=== PATIENT | female | born 1985 | race Caucasian/White ===

== ENCOUNTER → 2018-12-26 15:53 | Outpatient (CLI) | payer OTHER, SELFPAY ==
--- NOTE | 2018-12-26 | DI.MRI.S_ITS ---
PROCEDURE: MR FOOT RT WO CON INDICATIONS: Lateral right ankle and foot pain TECHNIQUE: Noncontrast sagittal T1 spin echo and T2 fast spin echo with fat saturation, long-axis T1 spin echo and T2 fast spin echo with fat saturation, short-axis T1 spin echo and T2 fast spin echo with fat saturation through the forefoot. COMPARISON: [facility], MR, MR ANKLE RT WO CON, 12/26/2018, 16:11. FINDINGS: Image quality: Excellent. Bones and joints: No bone marrow contusions or metatarsal stress fractures. The sesamoid bones appear in expected positions, without internal edema. No metatarsophalangeal joint degeneration. No intraosseous lesions. Soft tissues: The visualized plantar foot muscles demonstrate normal signal and bulk. Visualized flexor and extensor tendons appear intact, without tenosynovitis. The distal insertions of the peroneus brevis and longus tendons appear intact. The principal Lisfranc ligament appears intact. No soft tissue ganglion cysts or bursal fluid collections. Sagittal images demonstrate no evidence for plantar plate tears. Nonspecific dorsal subcutaneous edema overlying the forefoot at the level of the metatarsal bases. IMPRESSION: Nonspecific dorsal forefoot subcutaneous edema. Dictated by: Tommy Fisher M.D. on 12/27/2018 at 9:10 Approved by: Tommy Fisher M.D. on 12/27/2018 at 9:15
--- NOTE | 2018-12-26 | DI.MRI.S_ITS ---
PROCEDURE: MR ANKLE RT WO CON INDICATIONS: Lateral right ankle pain TECHNIQUE: Noncontrast sagittal T1 spin echo and T2 fast spin echo with fat saturation, axial proton density fast spin echo and T2 fast spin echo with fat saturation, coronal T1 spin echo and T2 fast spin echo with fat saturation through the ankle/hindfoot. COMPARISON: None. FINDINGS: Image quality: Excellent. Bones and joints: No bone marrow contusions or fractures. No hindfoot coalitions. No osteochondral injuries of the talar dome. No pathologic joint effusions. Incidental ganglion cyst synovial cyst seen at the posterior aspect of the tibiotalar posterior recess. Medial structures: The posterior tibialis, flexor digitorum longus, and flexor hallucis longus tendons are intact. Minimal posterior tibialis tenosynovitis. The posterior tibial neurovascular bundle appears normal within the tarsal tunnel, without extrinsic mass effect. The deep layer (anterior and posterior tibiotalar ligaments) and superficial layer (tibionavicular, tibiospring, and tibiocalcaneal ligaments) of the deltoid ligament appear normal. The spring ligament components (superomedial calcaneonavicular, medioplantar oblique calcaneonavicular, and inferoplantar longitudinal ligaments) are intact. Lateral structures: The anterior talofibular, calcaneofibular, and posterior talofibular ligaments appear intact. However, there is predominantly low signal thickening of the anterior talofibular ligament More superiorly, the anterior and posterior tibiofibular ligaments appear intact, as is the intermalleolar ligament. The tibiofibular syndesmosis is normal in width at 2 mm or less. There is severe peroneus longus and brevis tenosynovitis. The peroneus longus tendon appears grossly intact. There is prominent longitudinal split tear of the peroneus brevis tendon extending from the level of the tip of the lateral malleolus to the level of the anterior calcaneus. Associated thickening and internal signal changes. Adjacent bony peroneal tubercle and retrotrochlear prominence are normal in size. The sinus tarsi demonstrates normal fatty signal, without edema, fibrosis, or cyst formation. Visualized sinus tarsi components (cervical ligament, interosseous talocalcaneal ligament, roots of the inferior extensor retinaculum) appear normal. The calcaneonavicular and calcaneocuboid components of the bifurcate ligament appear intact. The dorsal calcaneocuboid ligament appears intact. Anterior structures: The tibialis anterior, extensor hallucis longus, and extensor digitorum longus tendons appear intact. The dorsal talonavicular ligament appears intact. There is mild dorsal subcutaneous edema in the region of the forefoot. Posterior and plantar structures: Achilles tendon is intact. Mild medial band plantar fasciitis at the calcaneal attachment. IMPRESSION: Severe peroneus brevis tendinopathy and longitudinal split tear as above. Associated tenosynovitis. Peroneus longus tenosynovitis. Low-grade sprain of the anterior talofibular ligament although probably chronic given the largely low signal appearance. Minimal posterior tibialis tenosynovitis. Mild medial band plantar fasciitis. Dictated by: Tommy Fisher M.D. on 12/27/2018 at 9:15 Approved by: Tommy Fisher M.D. on 12/27/2018 at 9:22
== END ==
PROVIDERS: Family Provider Family Medicine; PCP Family Medicine; Visit Provider Podiatrist
DX: M25.571 Pain in right ankle and joints of right foot (principal); M79.671 Pain in right foot; R60.0 Localized edema
CPT/HCPCS: 73718; 73721

== ENCOUNTER 2020-10-17 11:36 | Emergency (ER) | payer OTHER, SELFPAY ==
--- NOTE | 2020-10-17 11:50 | ED_ITS ---
HPI - Abdominal Pain General Chief Complaint: Nausea/Vomiting/Diarrhea Stated Complaint: stomach cramping/diarrhea 4 days Time Seen by Provider: 10/17/20 11:41 Source: patient and family Mode of arrival: Ambulatory Limitations: no limitations History of Present Illness HPI narrative: 35-year-old female nonsmoker with history of celiac disease presents with her significant other and a chief complaint of waxing and waning episodes of abdominal cramping since Sunday. She has had episodes of loose stool and now is passing mucus with her stool. There is no obvious provocation, palliation or radiation of her discomfort. She is occasionally nauseated but denies any vomiting. She has had no fever or chills. She has had no blood in her stool. She denies any recent antibiotics, international travel, bad food or exposure to other persons with similar symptoms. She currently is not having any symptoms. She states that just prior to COVID she was diagnosed with celiac but has not followed up and has not seen anybody in takes no specific treatments for this. At the end of questions she remembers that the symptoms started after eating a small amount of bread. MD complaint: abdominal pain Onset (ago): day(s) Pain Consistency: intermittent Location: diffuse Severity: moderate Quality: cramping Radiation: none Migration to: no migration Relieving factors: nothing Exacerbating factors: nothing Associated symptoms: nausea and diarrhea Related Data Previous Rx's Medication Instructions Recorded hyoscyamine sulfate 0.125 mg PO BID-QID PRN #20 tab 10/17/20 Allergies Allergy/AdvReac Type Severity Reaction Status Date / Time gluten Allergy Severe Gastrointestinal Verified 10/17/20 12:11 Upset acetaminophen Allergy Intermediate Gastrointestinal Verified 10/17/20 12:11 Upset Review of Systems Constitutional Constitutional: Denies chills, Denies fatigue, Denies fever(s), Denies frequent falls, Denies lethargy and Denies weakness Eyes Eyes: Denies change in vision, Denies eye discharge, Denies irritation and Denies loss of vision ENT Ears, Nose, Mouth, and Throat: Denies change in voice, Denies dizziness, Denies neck pain, Denies sore throat and Denies throat swelling Cardiovascular Cardiovascular: Denies chest pain, Denies irregular heart rhythm, Denies lightheadedness, Denies palpitations, Denies dyspnea, Denies dyspnea on exertion and Denies orthopnea Respiratory Respiratory: Denies cough, Denies dyspnea, Denies dyspnea on exertion and Denies wheezing Gastrointestinal Gastrointestinal: Reports abdominal pain, Reports change in bowel habits, Reports diarrhea, Reports nausea and Denies vomiting Musculoskeletal Musculoskeletal: Denies neck pain and Denies numbness Integumentary/Breasts Skin/Breast: Denies pruritus, Denies erythema, Denies rash and Denies wounds Neurologic Neurologic: Denies behavioral changes, Denies confusion, Denies dizziness, Denies frequent falls, Denies loss of vision, Denies numbness and Denies weakness Psychiatric Psychiatric: Denies anxiety, Denies behavioral changes, Denies confusion, Denies depression, Denies homicidal ideation and Denies suicidal ideation Endocrine Endocrine: Denies fatigue, Denies flushing and Denies palpitations Hematologic/Lymphatic Hematologic/Lymphatic: Denies easy bruising Allergic/Immunologic Allergic/Immunologic: Denies urticaria, Denies throat swelling and Denies wheezing Patient History Social History Smoking Status: Never smoker Smoking Status: Never smoker alcohol intake frequency: 0-2 drinks per day Substance Use Type: does not use Exam Narrative Exam Narrative: GENERAL: [35] year old patient appears stated age. Well- developed patient, in mild distress. HEAD: Atraumatic. Normocephalic. EYES: Pupils equal round and reactive. Extraocular motions intact. No scleral icterus. No injection or drainage. ENT: Nose without bleeding, purulent drainage. Throat without erythema, tonsillar hypertrophy or exudate. Airway patent. NECK: Trachea midline. Non tender CARDIOVASCULAR: Regular rate and rhythm without murmurs, gallops, or rubs. RESPIRATORY: Clear to auscultation. Breath sounds equal bilaterally. No wheezes, rales, or rhonchi. GASTROINTESTINAL: Abdomen soft, non-tender, nondistended. EXTREMITIES: No edema or joint tenderness. BACK: Nontender without deformity or crepitance. No flank tenderness. NEURO: AOx3. SKIN: No rash or erythema of visible areas Initial Vital Signs Initial Vital Signs: Vital Signs Temperature 98.5 F 10/17/20 11:52 Pulse Rate 92 H 10/17/20 11:52 Respiratory Rate 18 10/17/20 11:52 Blood Pressure 145/90 H 10/17/20 11:52 Pulse Oximetry 99 10/17/20 11:52 Course Orders Ordered: ED Orders 10/17/20 11:49 XR abdomen min 2V Stat 10/17/20 12:10 Complete Blood Count AUTO DIFF Stat 10/17/20 12:17 Comprehensive Metabolic Panel Stat Discontinued Medications Lactated Ringer's (Lactated Ringers) 1,000 mls @ 1,000 mls/hr IV BOLUS ONE Stop: 10/17/20 12:48 Last Admin: 10/17/20 12:11 Dose: 1,000 mls/hr Documented by: JUAN ALBERTO Vital Signs Vital signs: Vital Signs - 8 hr 10/17/20 11:52 Temperature 98.5 F Pulse Rate 92 H Respiratory Rate 18 Blood Pressure 145/90 H Pulse Oximetry 99 MDM - Abdominal Pain Lab Data Result diagrams: 10/17/20 12:10 10/17/20 12:17 Labs: Lab Results 10/17/20 10/17/20 Range/Units 12:10 12:17 WBC 6.5 (4.5-11.0) X10^3/uL RBC 4.87 (4.0-5.2) X10^6/uL Hgb 14.6 (12.0-16.0) g/dL Hct 42.3 (36-46) % MCV 86.7 (80-100) fL MCH 30.0 (26-34) PG MCHC 34.6 (30-36) % RDW 12.9 (11.6-14.8) % Plt Count 154 (150-400) X10^3/uL Neut % (Auto) 57.6 (50-75) % Lymph % (Auto) 30.1 (25-40) % [place] % (Auto) 9.6 (3-14) % Eos % (Auto) 2.0 (2-4) % Baso % (Auto) 0.7 (0-2) % Neut # (Auto) 3800 (3038-1331) /uL Lymph # (Auto) 2000 (1348-7069) /uL [place] # (Auto) 600 (0-900) /uL Eos # (Auto) 100 (0-450) /uL Baso # (Auto) 0 (0-100) /uL Sodium 139 (137-145) mmol/L Potassium 4.0 (3.4-5.1) mmol/L Chloride 105 (98-107) mmol/L Carbon Dioxide 26 (22-32) mmol/L BUN 11 (7-17) mg/dL Creatinine 0.80 (0.52-1.04) mg/dL Estimated GFR > 60.0 (>60) mL/min BUN/Creatinine Ratio 13.8 (6-22) Glucose 94 (70-100) mg/dL Calcium 9.7 (8.4-10.2) mg/dL Total Bilirubin 0.8 (0.2-1.3) mg/dL AST 30 (14-36) IU/L ALT 21 (<35) IU/L Alkaline Phosphatase 62 (38-126) U/L Total Protein 7.9 (6.3-8.2) g/dL Albumin 4.5 (3.5-5.0) g/dL Globulin 3.4 (1.7-4.1) g/dL Albumin/Globulin Ratio 1.3 (1.0-2.8) Imaging Data Abdominal x-ray: Radiologist's Impression: BLAZE CHRISTIAN 35 F [address] [address]YAtn ReportSigned Patient: BLAZE CHRISTIANMR#: [id number]: 1985Acct:[id number]/Sex: 35 / FDate of Service: 10/17/20Loc: EDAccession Number: [id number] Procedure: XR abdomen min 2V Ordering Provider: Carter Irizarry D.O. PROCEDURE: XR ABDOMEN MIN 2V INDICATIONS: crampy abdominal pain, episodes of diarrhea TECHNIQUE: 2 views of the abdomen were acquired. COMPARISON: None. FINDINGS: Surgical changes and devices: Sterilization clips are incidentally noted within the pelvis. Bowel: No pneumoperitoneum. The bowel gas pattern is normal. Soft tissues: No masses; visualized solid organ contours appear normal in size. No suspicious abdominal calcifications. Bones: No suspicious bony abnormalities. IMPRESSION: A nonobstructive bowel gas pattern is seen. If clinically appropriate, please consider a repeat plain film study or a dedicated CT of the abdomen and pelvis, if the patient's symptoms persist or worsen. Dictated by: Hill Hillman M.D. on 10/17/2020 at 11:25 Approved by: Hill Hillman M.D. on 10/17/2020 at 11:25 Discharge Plan Departure Patient Disposition: Home Clinical Impression: Acute vomiting Abdominal pain Qualifiers: Abdominal location: generalized Qualified Code(s): R10.84 - Generalized abdominal pain Instructions: DI for Abdominal Pain-Adult Activity Restrictions/Additional Instructions: *You have been diagnosed with [episodic, crampy abdominal pain with reassuring blood work and x-ray, possibly a reaction to diet (celiac)] *What to do: *Please continue to take your regular medications as directed. [ x] New medication prescriptions printed *Please follow up with your primary care provider in 2-3 days, call for an appointment. Let them know you were seen in the Emergency Department and that we ask that you be seen in follow up. We will electronically transmit a record of today's note if your PCP is in our system *If you do not have a primary care provider please contact the [facility] Resource line at [phone]. They will ask some questions about your medical history and help get you set up with a doctor in the community. *Return to Emergency Department if you should have any new, worsening or concerning symptoms, such as [fever greater than 101 F, shaking chills, worsening pain, persistent vomiting or other bothersome symptoms] 1. Drink plenty of fluids with frequent small sips. Avoid dietary triggers 2. For the next 24 hours a clear liquid diet is advised. After that please employ a B.R.A.T. diet which would include bananas, rice, apples, toast and other mild food items 3. Please take medications as directed. 4. Please follow-up with your doctor in the next 1-2 days. Call the office for an appointment. 5. Please return to the emergency Department for any worsening or persistent symptoms, such as increasing pain or fever. Prescriptions: New hyoscyamine sulfate 0.125 mg tablet 0.125 mg PO BID-QID PRN (Reason: dyspepsia) Qty: 20 RF: 0 Referrals: Mary Beth Langley DO [Primary Care Provider] -
[2020-10-17 11:52] VITALS: BP 145/90; PULSE 92; RESP 18; TEMP 36.9; O2SAT 99; BMI 36.9
[2020-10-17] MEDS: LACTATED RINGERS 1,000 ML 1000 ML IV (12:11)
[2020-10-17 12:17] LABS: Add Manual Diff / Slide Review NO; Basophils Absolute Auto 0 /uL (0-100); Basophils Percent Auto 0.7 % (0-2); Eosinophils Absolute Auto 100 /uL (0-450); Hematocrit 42.3 % (36-46); Hemoglobin 14.6 g/dL (12.0-16.0); Lymphocytes Absolute Auto 2000 /uL (1100-4500); Lymphocytes Percent Auto 30.1 % (25-40); Mean Corpuscular HGB Conc 34.6 % (30-36); Mean Corpuscular Volume 86.7 fL (80-100); Monocytes Absolute Auto 600 /uL (0-900); Monocytes Percent Auto 9.6 % (3-14); Neutrophils Absolute Auto 3800 /uL (1500-7000); Neutrophils Percent Auto 57.6 % (50-75); Platelet Count 154 X10^3/uL (150-400); Red Blood Cell Count 4.87 X10^6/uL (4.0-5.2); Red Cell Distribution Width 12.9 % (11.6-14.8); White Blood Cell Count 6.5 X10^3/uL (4.5-11.0)
[2020-10-17 12:28] LABS: Alanine Aminotransferase 21 IU/L (<35); Albumin 4.5 g/dL (3.5-5.0); Albumin Globulin Ratio 1.3 (1.0-2.8); Alkaline Phosphatase 62 U/L (38-126); Aspartate Aminotransferase 30 IU/L (14-36); BUN Creatinine Ratio 13.8 (6-22); Bilirubin Total 0.8 mg/dL (0.2-1.3); Blood Urea Nitrogen 11 mg/dL (7-17); Calcium 9.7 mg/dL (8.4-10.2); Carbon Dioxide 26 mmol/L (22-32); Chloride 105 mmol/L (98-107); Estimated Glomerular Filt Rate > 60.0 mL/min (>60); Globulin 3.4 g/dL (1.7-4.1); Glucose 94 mg/dL (70-100); HEMOLYSIS < 15 (0-50); Sodium 139 mmol/L (137-145); Total Protein 7.9 g/dL (6.3-8.2)
[2020-10-17 13:03] VITALS: BP 122/75; PULSE 68; RESP 18
--- NOTE | 2020-10-17 13:18 | PC.NURSE ---
pt states she has celiac disease and ate gluten on Sunday. Later developed mucosy diarrhea. Nausea / no vomiting. Appears well. [place]/warm/dry.
--- NOTE | 2020-10-22 14:58 | PC.NURSE ---
Late entry: LR started @ 1211 on 10/17 completed 1315. 1000 cc infused, no ill effect.
== END 2020-10-17 13:25 | disposition home or self-care (01) ==
PROVIDERS: Emergency Provider Emergency Medicine; Family Provider Family Medicine; PCP Family Medicine
DX: R10.84 Generalized abdominal pain (principal); R11.2 Nausea with vomiting, unspecified; R19.7 Diarrhea, unspecified; K90.0 Celiac disease
CPT/HCPCS: 36415; 74019; 80053; 85025; 96360; 99284

== ENCOUNTER 2021-03-21 09:22 | Emergency (ER) | payer OTHER, SELFPAY ==
[2021-03-21 09:25] VITALS: BP 139/84; PULSE 95; RESP 14; TEMP 36.8; O2SAT 99
[2021-03-21 09:38] VITALS: PULSE 88; RESP 22; O2SAT 99
[2021-03-21 10:00] VITALS: BP 118/81; PULSE 81; RESP 19; O2SAT 96
--- NOTE | 2021-03-21 10:02 | ED.ARRPALP ---
HPI - Arrhythmia/Palpitations General Chief Complaint: Arrhythmia/Palpitations Stated Complaint: High heartrate/severe sweating Time Seen by Provider: 03/21/21 09:35 Source: patient Mode of arrival: Ambulatory Limitations: no limitations History of Present Illness HPI narrative: 35-year-old female who is here for evaluation of several days of occasional episodes where she is feeling like her heart is beating fast. She has no other associated symptoms to include chest pain or shortness of breath or lightheadedness. A couple years ago she had an event where she states that her heart rate was greater than 200. She was seen by EMS. She was given medications through an IV which improved her symptoms. She was still transported to the hospital and had labs performed was subsequently discharged home. She has had no further workup since that time. She has been relatively asymptomatic until just recently when the symptoms have been reoccurring. She does have on a apple watch which does give her her heart rate. Last evening she woke up and was sweating and feeling like her heart is beating fast. Her Apple watch stated that her heart rate was in the 140s. It lasted approximately 1 hour and then slowly resolved. She is currently asymptomatic. Related Data Home Medications Medication Instructions Recorded Confirmed cholecalciferol (vitamin D3) 50 50 mcg PO DAILY 03/21/21 03/21/21 mcg (2,000 unit) capsule famotidine 20 mg tablet (Pepcid) 20 mg PO BID PRN 03/21/21 03/21/21 Allergies Allergy/AdvReac Type Severity Reaction Status Date / Time gluten Allergy Severe Gastrointestinal Verified 03/21/21 09:35 Upset Review of Systems Review of Systems ROS Unobtainable: All systems reviewed & are unremarkable except as noted in HPI and below Patient History Medical History Anxiety GERD (gastroesophageal reflux disease) Surgical History (Updated 03/21/21 @ 09:37 by Mi Helms RN) H/O tubal ligation Social History Smoking Status: Never smoker Smoking Status: Never smoker alcohol intake frequency: 0-2 drinks per day Substance Use Type: does not use Exam Initial Vital Signs Initial Vital Signs: Vital Signs Temperature 98.2 F 03/21/21 09:25 Pulse Rate 95 H 03/21/21 09:25 Respiratory Rate 14 03/21/21 09:25 Blood Pressure 139/84 03/21/21 09:25 Pulse Oximetry 99 03/21/21 09:25 Const General: cooperative, healthy appearing and comfortable Limitations: mental status not altered HENMT Head: normal to inspection and normocephalic Eyes General: appearance normal, both eyes and all related structures Resp Effort & Inspection: normal respiratory effort Auscultation: clear to auscultation bilaterally Cardio Rate: regular rate Rhythm: regular rhythm GI Inspection: normal to inspection Back/Spine/Pelvis Back: normal to inspection Skin Lesions: no lesions Rashes: no rashes Neuro General: patient alert, patient awake, patient oriented x3 and moves all extremities Extrem General: No edema Psych Appearance: grossly normal and well kempt Course Orders Ordered: ED Orders 03/21/21 09:36 EKG-12 Lead Stat Vital Signs Vital signs: Vital Signs - 8 hr 03/21/21 09:25 03/21/21 09:38 Temperature 98.2 F Pulse Rate 95 H 88 Respiratory Rate 14 22 Blood Pressure 139/84 Pulse Oximetry 99 99 MDM - Arrhythmia/Palpitations ECG Data Attestation: I personally reviewed and interpreted this ECG as follows: Prior ECG tracings: not available for review Interpretation: Sinus rhythm Ventricular rate 81 Normal axis Normal QRS Normal QTC No ST T wave changes MDM Narrative Medical decision making narrative: Patient is asymptomatic. Her EKG is unremarkable. She does had labs drawn 2 weeks ago by her primary doctor. These are not available for my review which she states that her electrolytes and her thyroid were normal. She is in sinus rhythm currently. Patient does require Holter monitor. I do not feel that repeating labs today here in the emergency department would be beneficial. It sounds like several years ago she did have a episode of SVT but has not had any workup since that time. Will discharge home with instructions follow-up with primary doctor to discuss Holter monitor. She was given return precautions. She expressed understanding and agreement. Discharge Plan Departure Patient Disposition: Home Clinical Impression: Palpitations Instructions: DI for Arrhythmias Activity Restrictions/Additional Instructions: Continue to take all of your medications as directed. Contact your primary doctor for a follow-up to discuss the indications for a Holter monitor. Return to the emergency department for any new or worsening symptoms Prescriptions: No Action famotidine [Pepcid] 20 mg Tablet 20 mg PO BID PRN (Reason: gerd) RF: 0 cholecalciferol (vitamin D3) 50 mcg (2,000 unit) Capsule 50 mcg PO DAILY RF: 0 Referrals: Mary Beth Langley DO [Primary Care Provider] -
== END 2021-03-21 10:26 | disposition home or self-care (01) ==
PROVIDERS: Emergency Provider Emergency Medicine; Family Provider Family Medicine; PCP Family Medicine
DX: R00.2 Palpitations (principal)
CPT/HCPCS: 93005; 99283